=== PATIENT | male | born 1985 | race Caucasian/White ===

== ENCOUNTER 2022-04-29 13:27 | Emergency (ER) | payer MEDICAID, SELFPAY ==
[2022-04-29] VITALS (7 sets, daily range): BP systolic 112–133; BP diastolic 70–91; PULSE 32–93; RESP 16–18; TEMP 36.6–36.8; O2SAT 98–99; BMI 22.1
--- NOTE | 2022-04-29 15:30 | PC.NURSE ---
visual acuity rt 20/30 ly 20/70
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
--- NOTE | 2022-04-29 16:15 | PC.NURSE ---
JORDEN GARNICA at for patient eval
--- NOTE | 2022-04-29 16:15 | PC.NURSE ---
pt given cold drink
== END 2022-04-29 16:58 | disposition home or self-care (01) ==
PROVIDERS: Emergency Provider Emergency Medicine
DX: T15.02XA Foreign body in cornea, left eye, initial encounter (principal); Z88.6 Allergy status to analgesic agent
CPT/HCPCS: 99283

== ENCOUNTER 2023-04-16 18:13 | Emergency (ER) | payer MEDICAID, OTHER, SELFPAY ==
[2023-04-16 18:13] VITALS: BP 140/80; PULSE 126; RESP 20; O2SAT 98
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
[2023-04-16 18:30] VITALS: BP 139/90; PULSE 125; RESP 18; O2SAT 98
[2023-04-16 18:43] LABS: Alanine Aminotransferase 24 U/L (12-78); Albumin Level 4.6 g/dl (3.5-5.0); Albumin/Globulin Ratio 1.4 (1.1-1.8); Alkaline Phosphatase 94 U/L (38-126); Anion Gap 10.7 mEq/L (5-15); Aspartate Amino Transferase 47 U/L (17-59); Bilirubin,Total 1.1 mg/dl (0.2-1.3); Blood Urea Nitrogen 9 mg/dl (9-20); Calcium 9.1 mg/dl (8.4-10.2); Carbon Dioxide 27 mmol/L (22.0-30.0); Chloride 105 mmol/L (98-107); Estimated Glomerular Filt Rate 83 ml/min (>60); GFR (African American) 100 ML/MIN (>60); Globulin 3.3 g/dL (1.3-3.2); Glucose 116 mg/dl (74-100); Potassium 4.7 mmoL/L (3.5-5.1); Sodium 138 mmol/L (136-145); Total Protein,Serum 7.9 g/dl (6.3-8.2)
[2023-04-16 18:44] LABS: INR 1.04 (0.9-1.1); Prothrombin Time 11.2 seconds (10.1-12.5)
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
[2023-04-16 18:54] LABS: Basophils # 0.1 K/mm3 (0-0.2); Eosinophils # 0.4 K/mm3 (0.0-0.4); Eosinophils % 3.9 % (0.1-12.0); Hematocrit 48.8 % (42.0-52.0); Lymphocytes # 3.7 K/mm3 (0.7-4.5); Lymphocytes % 39.9 % (10-50); Mean Corpuscular HGB Conc 32.7 g/dL (31.8-35.4); Mean Corpuscular Hemoglobin 29.8 pg (27.0-31.2); Mean Platelet Volume 7.7 fl (7.4-10.4); Monocytes # 0.5 K/mm3 (0.1-1.0); Monocytes % 5.3 % (1.7-9.3); Neutrophils # 4.6 K/mm3 (1.8-7.8); Neutrophils % 49.8 % (37.0-80.0); Platelet Count 397 K/mm3 (142-424); Red Blood Count 5.36 M/mm3 (4.60-6.20); Red Cell Distribution Width 12.7 % (11.5-17.5); White Blood Count 9.3 K/mm3 (4.8-10.8)
--- NOTE | 2023-04-16 19:06 | PC.NURSE ---
Handed off report to ground operations crew member
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
--- NOTE | 2023-04-16 20:36 | PC.NURSE ---
PT UNDERSTANDS RISK OF NOT TAKING TETANUS AT THIS TIME, PT CONTINUES TO REFUSE SHOT AT THIS TIME
--- NOTE | 2023-04-16 20:54 | PC.NURSE ---
KEELEY GARNICA on phone with Dr. Coelho at
--- NOTE | 2023-04-16 20:57 | PC.NURSE ---
Dr. Coelho accepted patient, patient going POV. Radiology notified of need for disc
--- NOTE | 2023-04-16 22:24 | PC.NURSE ---
report given to Nay Felton at [facility] ED
[2023-04-16 22:26] VITALS: BMI 20.7
[2023-04-16 22:27] VITALS: BP 132/87; PULSE 117; RESP 17; TEMP 36.8
[2023-04-17 01:10] LABS: POC Glucose,Bedside 108 (70-110)
== END 2023-04-16 22:27 | disposition short-term general hospital (02) ==
PROVIDERS: Emergency Provider Emergency Medicine
DX: S82.401B Unspecified fracture of shaft of right fibula, initial encounter for open fracture type I or II (principal); V28.09XA Other motorcycle driver injured in noncollision transport accident in nontraffic accident, initial encounter; F17.210 Nicotine dependence, cigarettes, uncomplicated; Z23 Encounter for immunization
CPT/HCPCS: 29515; 70450; 71045; 71250; 72125; 72128; 72131; 72170; 73562; 73590; 73610; 73630; 73700; 74176; 80053; 82962; 85025; 85610; 90715; 93041; 96361; 96365; 96372; 96375; 99291; J2405

== ENCOUNTER 2024-01-14 12:31 | Emergency (ER) | payer SELFPAY ==
[2024-01-14 12:32] VITALS: BP 130/87; PULSE 103; RESP 18; TEMP 36.6; O2SAT 98; BMI 22.8
--- NOTE | 2024-01-14 13:35 | ED_ITS ---
Discharge Plan Disposition Patient Disposition: Home, Self-Care Condition: Good Prescriptions Prescriptions: No Action permethrin 60 GM cream 1 applicatio TP DIRECTED Qty: 1 1RF Rx Instructions: Apply cream from neck down to toes before bed, wait 8-14 hours and shower and rinse off. May repeat in 14 days if still having symptoms Referrals Follow up/Referrals: Provider,Referral, MD [Primary Care Provider] - See instructions Clinical Impressions Clinical Impression: Corneal foreign body Instructions Patient Instructions: DI for Foreign Body in the Eye Discharge ED Provider: Zita ([facility] [[email or web address]])[place] [facility] [place] [facility] [place] General Stated complaint: AO 01/13/24 @ 18:00. object in eye Mode of Arrival: Ambulatory Source of Information: Patient Time Seen by Provider: 01/14/24 13:35 Description of Symptoms (Recalled from Triage Doc. by RN): under a car and something went in eye HEENT Symptoms (Recalled from RN notes): No Resp Symptoms (Recalled from RN notes): No Skin Symptoms (Recalled from RN notes): No MS Symptoms (Recalled from RN notes): No Functional Status (Recalled from RN notes): na History of Present Illness Provider Complaint: 38 yr old male presents for left eye pain. pt states he was working under his car when something fell into his eye and now having pain Related Data Previous Rx's Medication Instructions Recorded permethrin 5 % topical cream 1 applicatio TP DIRECTED #1 tube 04/23/19 Allergies Allergy/AdvReac Type Severity Reaction Status Date / Time codeine [CODEINE] Allergy Unknown Verified 04/23/19 20:39 Worker's Comp Is this a Worker's Comp case?: No [facility] Disclaimer: The information contained in this section may have been updated after the patient was seen, as this information can be updated by other users. Social History (Reviewed 01/14/24 @ 13:37 by Cameron Ahumada ([facility] [[email or web address]]), BOOKING AGENT) Smoking Status: Current every day smoker tobacco type: cigarettes packs per day: 1 alcohol intake: never substance use type: crack/cocaine and heroin current occupational status: other Travel in the last 8 weeks: None ROS Obtained: Yes All systems reviewed & no additional complaints except as do cumented Constitutional Constitutional: Reports system reviewed and no additional complaints, except as documented Eyes Eyes: Reports system reviewed and no additional complaints, except as documented, Reports as per HPI, Reports blurry vision, Reports change in vision, Reports irritation, Reports sensitivity to light and Reports eye pain ENT Ears, Nose, Mouth, and Throat: Reports system reviewed and no additional complaints, except as documented Cardiovascular Cardiovascular: Reports system reviewed and no additional complaints, except as documented Respiratory Respiratory: Reports system reviewed and no additional complaints, except as documented Gastrointestinal Gastrointestingal: Reports system reviewed and no additional complaints, except as documented Integumentary/Breasts Skin/Breast: Reports system reviewed and no additional complaints, except as documented Neurologic Neurologic: Reports system reviewed and no additional complaints, except as documented Hematologic/Lymphatic Henatologic/Lymphatic: Reports system reviewed and no additional complaints, except as documented Physical Exam General General appearance: alert and in no apparent distress Head Head exam: atraumatic Eye Eye exam: Present normal appearance, PERRL, conjunctival injection and other (watery, fb in front- dirt or metal?) ENT ENT exam: Present normal exam Chest Chest inspection: Present normal inspection Respiratory Respiratory exam: Present normal lung sounds bilaterally Cardiovascular Cardiovascular exam: Present regular rate and normal rhythm Neurological Exam Neurological exam: Present alert and oriented X3 Psychiatric Psychiatric exam: Present normal affect Skin Skin exam: Present warm and intact Medical Decision Making Medical Records Medical records reviewed: Yes I reviewed the patient's medical records. Noe Inquiry Pt receiving controlled substance: No Vital Signs: 01/14/24 12:32 Temperature 97.9 F Temperature Source Oral Pulse Rate [Right Radial] 103 H Respiratory Rate 18 Blood Pressure [Right Arm] 130/87 Blood Pressure Mean [Right Arm] 101 02 Sat by Pulse Oximetry 98 Oxygen Delivery Method Room Air Physician Consults Physician Consulted: brea wyatt Time: 13:39 Reason -: Pt condition Comment/Response: will meet pt at his office in 15 mins
[2024-01-14 13:55] VITALS: BP 130/87; PULSE 103; RESP 18; TEMP 36.6; O2SAT 98
== END 2024-01-14 13:40 | disposition home or self-care (01) ==
PROVIDERS: Emergency Provider Nurse Practitioner Family
DX: T15.02XA Foreign body in cornea, left eye, initial encounter (principal); W44.8XXA Other foreign body entering into or through a natural orifice, initial encounter
CPT/HCPCS: 99203; 99212; G0463